=== PATIENT | male | born 2000 | race Caucasian/White ===

== ENCOUNTER 2024-05-18 10:50 | Inpatient (IN) | payer OTHER, SELFPAY ==
[2024-05-18 10:54] VITALS: BP 135/81; PULSE 82; RESP 18; TEMP 36.7; O2SAT 100; BMI 20.3
[2024-05-18 11:04] VITALS: BP 135/81; PULSE 82; RESP 18; TEMP 36.7; O2SAT 100
--- NOTE | 2024-05-18 11:06 | ED.C_ITS ---
HPI - Psych 2 General: Chief Complaint: Psychiatric Symptoms Stated Complaint: MHE, SI Time Seen by Provider: 05/18/24 10:59 Source: patient Mode of arrival: ambulatory Limitations: no limitations History of Present Illness: 24-year-old male states that he has been having increasing depression along with hallucinations over the last few months. States his grandmother recently and he has been using THC states he is hearing voices and he is increasingly depressed with suicidal thoughts denies any specific plan denies any worse improving factors does not take any meds Associated symptoms: Reports auditory hallucinations, depression and suicidal ideation Related Data Home Medications Medication Instructions Recorded Confirmed No Known Home Medications 05/18/24 05/18/24 Allergies Allergy/AdvReac Type Severity Reaction Status Date / Time No Known Allergies Allergy Verified 10/07/22 09:23 Review of Systems 2 Const: Denies: fever(s), chills, body aches or change in appetite ENMT: Denies: throat pain or dental pain Card: Denies: chest pain Resp: Denies: dyspnea GI: Denies: abdominal pain, nausea, vomiting or diarrhea Musc: Denies: neck pain or back pain Skin/Breast: Denies: rash Neuro: Denies: headache(s) Psych: Reports: depression, auditory hallucinations and suicidal ideation PFSH ED 2 PFSH: Family History (Updated 10/07/22 @ 09:26 by Vera Crane LPN) Denies family history of Diabetes Hypertension Social History (Updated 10/07/22 @ 09:27 by Vera Crane LPN) Smoking and tobacco/nicotine status: never used tobacco/nicotine Second hand smoke exposure: No Substance/Drug Use: never Physical Exam 2 Const: COMMON NORMALS: no acute distress, patient oriented x3 and healthy appearing HENMT: COMMON NORMALS: normocephalic and atraumatic HEAD & SCALP: n ormocephalic and atraumatic Neck/C-Spine: COMMON NORMALS: full ROM and supple Chest: COMMONS NORMALS: normal inspection of the chest Resp: COMMON NORMALS: normal respiratory effort, No retractions, No use of accessory muscles and clear to auscultation bilaterally AUSCULTATION: clear to auscultation bilaterally Cardio: COMMON NORMALS: regular rate, regular rhythm and No murmurs present (Cardio) RATE: regular rate RHYTHM: regular rhythm Extremity: COMMON NORMALS: normal to inspection and full ROM Neuro: COMMON NORMALS: patient oriented x3, moves all extremities and no focal motor deficits Psych: COMMON NORMALS: mental status grossly normal, Normal thought process present and cooperative THOUGHT PROCESS: Normal thought process present Skin: COMMON NORMALS: no rashes or lesions noted and no wounds GENERAL SKIN EXAM: no rashes or lesions noted Course 2 Vital Signs: Vital signs: Vital Signs Temperature 98.1 F 05/18/24 11:04 Pulse Rate 94 05/18/24 14:56 Respiratory Rate 18 05/18/24 11:04 Blood Pressure 143/94 05/18/24 14:56 Pulse Oximetry 100 05/18/24 14:56 Oxygen Delivery Me thod Room Air 05/18/24 14:56 MDM - Psych Medical Decision Making Patient presents here with suicidal ideations along with hallucinations patient placed under 96-hour hold medically cleared I spoke to psychiatrist will admit Medical Records I reviewed the patient's medical records. Lab Data I reviewed the patient's lab results. 05/18/24 12:03 05/18/24 12:03 Laboratory Results WBC 5.33 10^3/uL (3.29-11.43) 05/18/24 12:03 RBC 4.70 10^6/uL (3.85-5.65) 05/18/24 12:03 Hgb 15.00 g/dL (11.27-16.99) 05/18/24 12:03 Hct 45.0 % (37-53) 05/18/24 12:03 MCV 95.7 fl (82-101) 05/18/24 12:03 MCH 31.9 pg (27-33) 05/18/24 12:03 MCHC 33.3 g/dL (30-55) 05/18/24 12:03 RDW 12.4 % (12.1-15.1) 05/18/24 12:03 Plt Count 159 10^3/cmm (157-399) 05/18/24 12:03 MPV 10.5 fL (7.4-10.4) H 05/18/24 12:03 Neut % (Auto) 64.0 % 05/18/24 12:03 Lymph % (Auto) 27.0 % 05/18/24 12:03 Love % (Auto) 8.4 % 05/18/24 12:03 Eos % (Auto) 0.2 % 05/18/24 12:03 Baso % (Auto) 0.4 % 05/18/24 12:03 Neut # (Auto) 3.41 10^3/uL (1.8-7.7) 05/18/24 12:03 Lymph # (Auto) 1.4 10^3/uL (0.8-4.8) 05/18/24 12:03 Love # (Auto) 0.5 10^3/uL (0.2-0.9) 05/18/24 12:03 Eos # (Auto) 0.0 10^3/uL (0.0-0.8) 05/18/24 12:03 Baso # (Auto) 0.0 10^3/uL (0.0-0.1) 05/18/24 12:03 Nucleated RBC % (auto) 0 % 05/18/24 12:03 Nucleated RBCs # 0.0 /100WBC 05/18/24 12:03 Sodium 142 mmol/L (136-145) 05/18/24 12:03 Potassium 4.1 mmol/L (3.5-5.1) 05/18/24 12:03 Chloride 104 mmol/L (98-107) 05/18/24 12:03 Carbon Dioxide 29 mmol/L (22-29) 05/18/24 12:03 Anion Gap 13.1 (5-19) 05/18/24 12:03 BUN 14 mg/dL (6-20) 05/18/24 12:03 Creatinine 1.0 mg/dL (0.7-1.2) 05/18/24 12:03 GFR Calculation 92.6 mL/min (90-130) 05/18/24 12:03 Glucose 112 mg/dL (65-115) 05/18/24 12:03 Calculated Osmolality 295 mOsm/kg (285-295) 05/18/24 12:03 Calcium 9.2 mg/dL (8.5-10.5) 05/18/24 12:03 Total Bilirubin 0.5 mg/dL (0.15-1.2) 05/18/24 12:03 AST 20 U/L (0-40) 05/18/24 12:03 ALT 9 U/L (0-41) 05/18/24 12:03 Alkaline Phosphatase 66 U/L (40-130) 05/18/24 12:03 Total Protein 7.0 g/dL (6.6-8.7) 05/18/24 12:03 Albumin 4.9 g/dL (3.5-5.2) 05/18/24 12:03 Globulin 2.1 g/dL (1.3-4.6) 05/18/24 12:03 Salicylates < 0.3 mg/dL (3-10) L 05/18/24 12:03 Urine Opiates Screen Negative ng/mL (Negative) 05/18/24 12:50 Acetaminophen < 5.0 ug/mL (10-30) L 05/18/24 12:03 Ur Barbiturates Screen Negative ng/mL (Negative) 05/18/24 12:50 Ur Phencyclidine Scrn Negative ng/mL (Negative) 05/18/24 12:50 Ur Amphetamines Screen Negative ng/mL (Negative) 05/18/24 12:50 U Benzodiazepines Scrn Negative ng/mL (Negative) 05/18/24 12:50 Urine Cocaine Screen Negative ng/mL (Negative) 05/18/24 12:50 U Marijuana (THC) Screen Positive ng/mL (Negative) H 05/18/24 12:50 Ethyl Alcohol < 10 mg/dL (0-10) 05/18/24 12:03 Coronavirus (PCR) Negative (Negative) 05/18/24 11:24 Influenza A (PCR) Negative (Negative) 05/18/24 11:24 Influenza Type B (PCR) Negative (Negative) 05/18/24 11:24 RSV (PCR) Negative (Negative) 05/18/24 11:24 No radiology studies performed this visit Discharge Plan Discharge Condition: Stable Prescriptions: No Action No Known Home Medications Coding Level of Care Code ED Cur[employer] Specialist for Patricio Dukes
--- NOTE | 2024-05-18 11:45 | PC.NURSE ---
96 hour hold rights read and reviewed with patient. Patient verbalized understandings. Copy of rights given to patient.
[2024-05-18 12:09] LABS: Covid PCR NEGATIVE (Negative); Influenza A NEGATIVE (Negative); Influenza B NEGATIVE (Negative); Respiratory Syncytial Virus Ce NEGATIVE (Negative)
[2024-05-18 12:11] LABS: Basophils % 0.4 %; Eosinophils % 0.2 %; Lymphocytes # 1.4 10^3/uL (0.8-4.8); Mean Corpuscular HGB Conc 33.3 g/dL (30-55); Mean Corpuscular Hemoglobin 31.9 pg (27-33); Mean Corpuscular Volume 95.7 fl (82-101); Mean Platelet Volume 10.5 fL (7.4-10.4); Monocytes # 0.5 10^3/uL (0.2-0.9); Monocytes % 8.4 %; Neutrophils # 3.41 10^3/uL (1.8-7.7); Nucleated Red Blood Cells % 0 %; Platelet Count 159 10^3/cmm (157-399); Red Cell Distribution Width 12.4 % (12.1-15.1); White Blood Count 5.33 10^3/uL (3.29-11.43)
[2024-05-18 12:28] LABS: Alanine Aminotransferase 9 U/L (0-41); Albumin Level 4.9 g/dL (3.5-5.2); Alkaline Phosphatase 66 U/L (40-130); Anion Gap 13.1 (5-19); Aspartate Amino Transferase 20 U/L (0-40); Blood Urea Nitrogen 14 mg/dL (6-20); Calcium 9.2 mg/dL (8.5-10.5); Carbon Dioxide 29 mmol/L (22-29); Chloride 104 mmol/L (98-107); Creatinine Clr Calc Pharmacy 119.8854; Globulin 2.1 g/dL (1.3-4.6); Glomerular Filtration Rate 92.6 mL/min (90-130); Glucose 112 mg/dL (65-115); Osmolality Calculated 295 mOsm/kg (285-295); Potassium 4.1 mmol/L (3.5-5.1); Sodium 142 mmol/L (136-145); Total Bilirubin 0.5 mg/dL (0.15-1.2)
[2024-05-18 12:32] LABS: Acetaminophen < 5.0 ug/mL (10-30); Alcohol Level < 10 mg/dL (0-10); Salicylate < 0.3 mg/dL (3-10)
[2024-05-18 13:24] LABS: Amphetamines Screen Urine Negative (Negative); Barbiturates Screen Urine Negative (Negative); Benzodiazepines Screen Urine Negative (Negative); Cocaine Screen Urine Negative (Negative); Opiate Screen Urine Negative (Negative); PCP Screen Urine Negative (Negative); THC Screen Urine Positive (Negative)
[2024-05-18] MEDS: LORazepam 2 mg Tablet PO (14:55)
[2024-05-18 14:56] VITALS: BP 143/94; PULSE 94; O2SAT 100
[2024-05-18 18:35] VITALS: BP 119/70; PULSE 68; TEMP 36.7; O2SAT 98
[2024-05-18 20:50] VITALS: BP 126/83; PULSE 80; RESP 18; TEMP 36.8; O2SAT 99
[2024-05-19 06:00] VITALS: BP 125/69; PULSE 90; RESP 18; TEMP 37.2; O2SAT 98
[2024-05-19] MEDS: hyDROXYzine 25 mg Capsule 50 MG PO (07:09)
[2024-05-19] MEDS: OLANZapine 5 mg ODT PO (08:14)
--- NOTE | 2024-05-19 10:09 | PC.NURSE ---
pt at nurses station requesting another medication for anxiety. pt states I am starting to get agravated with people. administered zyprexia to patient. pt walked away towards dayroom sat down started watching tv.
[2024-05-19 14:00] VITALS: BP 125/82; PULSE 71; RESP 18; TEMP 36.6; O2SAT 100
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
[2024-05-19] MEDS: fluoxetine 20 mg Capsule PO (18:12)
[2024-05-19 19:29] VITALS: BP 115/70; PULSE 61; RESP 18; TEMP 36.9; O2SAT 99
[2024-05-19 21:54] VITALS: BP 115/70; PULSE 61; RESP 18; TEMP 36.9; O2SAT 99
[2024-05-20] MEDS: hyDROXYzine 25 mg Capsule 50 MG PO ×2 (03:32→13:11)
[2024-05-20 06:00] VITALS: BP 114/71; PULSE 75; RESP 16; TEMP 36.9; O2SAT 100
[2024-05-20] MEDS: fluoxetine 20 mg Capsule PO (08:53)
--- NOTE | 2024-05-20 09:45 | PC.NURSE ---
PT CURRENTLY DENIES SI/HI/AH/VH. PT CURRENTLY DENIES ANXIETY. PT ENDORSES DEPRESSION RATING IT A 6/10 ON A 0-10 SCALE WHERE 0 IS NONE AND 10 IS THE WORST POSSIBLE. PT APPEARS FLAT AND BLAND IN AFFECT WHILE APPEARING GUARDED DURING MORNING ASSESSMENT QUESTIONS. PT WAS COOPERATIVE WITH ASSESSMENT AND MEDICATIONS. PT CURRENT NEEDS ARE MET AT THIS TIME.
--- NOTE | 2024-05-20 11:15 | P.NPUPN_ITS ---
Subjective NPU 2 Subjective: Patient presented today reporting that things are going okay for him. We discussed speaking with his mother her reporting significant concern about how he is doing. He endorses tolerating the Prozac thus far and we discussed the fact that he would see how he was doing tomorrow and consider adding a mood stabilizer like Abilify. He denied any side effects to the medication. Mental Status Exam 2 MSE Comments: This is a slender possibly underweight but well-developed male in hospital scrubs with limited grooming and eye contact. No abnormal movements except for mild psychomotor retardation. Cooperative with exam in mild distress. Speech was decreased rate and volume. Patient mood described as depressed, affect slightly subdued. Thought process, organized. Thought content: patient denies any suicidal or homicidal ideation, no delusions reported but paranoid and/or persecutory delusions noted, and denies any auditory or visual hallucinations but does acknowledge that there were some perceptual disturbances that led to him coming to the hospital. The patient reports feeling depressed. He denies current suicidal or homicidal ideation. He denies feeling paranoid at the moment but reports possibly hearing things. Attention and concentration are intact and memory appears mostly reliable but none were formally tested. He is alert and oriented x 3. Insight and judgment are limited. Impulse control appears limited. Vitals/I&O/Wt Last Vital Signs Temp 98.4 F 05/20/24 06:00 Pulse 75 05/20/24 06:00 Resp 16 05/20/24 06:00 BP 114/71 05/20/24 06:00 Pulse Ox 100 05/20/24 06:00 O2 Del Method Room Air 05/20/24 06:00 Data NPU 05/18/24 12:03 05/18/24 12:03 A&P Assessment and plan (1) Suicidal ideation: (2) Acute psychosis: (3) Depression: (4) Anxiety: (5) Cannabis use disorder: Plan This is a 24-year-old male with no apparent recollection of his past mental health treatment but with documentation in the records from past interactions at [facility] with active mental health issues including depression, anxiety, trauma history as well as active cannabis use. The patient presents with symptoms of major depressive disorder, generalized anxiety disorder, paranoid ideation, and possible psychotic features. He has a history of substance use disorder and has experienced significant psychological trauma in his life. He has a complex mental health history and may benefit from medication management and therapy. 1. Start Prozac 20 mg p.o. daily. Consider mood stabilizer/antipsychotic. 2. Continue to-15 minute checks, 3.? Encourage individual, group and milieu therapy. 4.? Will attempt to gather collateral information. 5. Encourage sober living treatment after discharge at the highest level care to which he is willing to commit. Involuntary Hold Information 2 96 Hour Hold: 96 Hour Involuntary Admission: Yes 96 Hour Hold Ending Date: 05/24/24 96 Hour Hold Ending Time: 11:14 Attestations NPU 2 Medical Necessity Statement*: Inpatient hospitalization is medically necessary and the clinically appropriate intervention ?at this time.? We will monitor/initiate medications and make changes as indicated.? The patient?s likely length of stay 4-6 days. Coding Level of Care Code Acute Code for Chg Fwd Diagnoses Suicidal ideation R45.851 Acute psychosis F23 Depression F32.A Anxiety F41.9 Cannabis use disorder F12.90
[2024-05-20] MEDS: nicotine 2 mg Gum BUCCAL (13:15)
[2024-05-20 13:57] VITALS: BP 115/69; PULSE 77; RESP 16; TEMP 37; O2SAT 99
[2024-05-20] MEDS: trazodone 50 mg Tablet PO (20:41)
[2024-05-20 20:47] VITALS: BP 127/76; PULSE 75; RESP 17; TEMP 37.1; O2SAT 99
[2024-05-21] MEDS: hyDROXYzine 25 mg Capsule 50 MG PO ×2 (05:05→13:07)
[2024-05-21 05:52] VITALS: BP 127/87; PULSE 95; RESP 18; TEMP 36.8; O2SAT 99
[2024-05-21] MEDS: nicotine 2 mg Gum BUCCAL ×2 (09:07→15:52)
[2024-05-21] MEDS: fluoxetine 20 mg Capsule PO (09:07)
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
--- NOTE | 2024-05-21 11:53 | P.NPUPN_ITS ---
Subjective NPU 2 Subjective: Patient presented today reporting that he is feeling a little better with multiple days of Prozac now. We continue to discuss the psychotic symptoms and the possible benefit from having a mood stabilizer to augment the Prozac. Additionally it could assist in managing any psychotic symptoms. We continue to discuss concerns that Wanna could be playing a role in this from the standpoint of the psychosis. But he continues to be resistant to that piece but open to a trial of Abilify after discussion of risks, benefits and alternatives he understood and agreed to proceed as is documented in this note. Mental Status Exam 2 MSE Comments: This is a slender possibly underweight but well-developed male in hospital scrubs with limited grooming and eye contact. No abnormal movements except for mild psychomotor retardation. Cooperative with exam in mild distress. Speech was decreased rate and volume. Patient mood described as a little better, affect slightly subdued. Thought process, organized. Thought content: patient denies any suicidal or homicidal ideation, no delusions reported but paranoid and/or persecutory delusions noted, and denies any auditory or visual hallucinations but does acknowledge that there were some perceptual disturbances that led to him coming to the hospital. The patient reports feeling depressed. He denies current suicidal or homicidal ideation. He denies feeling paranoid at the moment but reports possibly hearing things. Attention and concentration are intact and memory appears mostly reliable but none were formally tested. He is alert and oriented x 3. Insight and judgment are limited. Impulse control appears limited. Vitals/I&O/Wt Last Vital Signs Temp 98.1 F 05/21/24 21:45 Pulse 70 05/21/24 21:45 Resp 17 05/21/24 21:45 BP 134/75 05/21/24 21:45 Pulse Ox 98 05/21/24 21:45 O2 Del Method Room Air 05/21/24 14:00 Data NPU 05/18/24 12:03 05/18/24 12:03 A&P Assessment and plan (1) Suicidal ideation: (2) Acute psychosis: (3) Depression: (4) Anxiety: (5) Cannabis use disorder: Plan This is a 24-year-old male with no apparent recollection of his past mental health treatment but with documentation in the records from past interactions at [facility] with active mental health issues including depression, anxiety, trauma history as well as active cannabis use. The patient presents with symptoms of major depressive disorder, generalized anxiety disorder, paranoid ideation, and possible psychotic features. He has a history of substance use disorder and has experienced significant psychological trauma in his life. He has a complex mental health history and may benefit from medication management and therapy. 1. Started Prozac 20 mg p.o. daily. Initiate Abilify 5 mg p.o. daily for mood stabilization and psychotic symptoms. 2. Continue to-15 minute checks, 3.? Encourage individual, group and milieu therapy. 4.? Will attempt to gather collateral information. 5. Encourage sober living treatment after discharge at the highest level care to which he is willing to commit. Involuntary Hold Information 2 96 Hour Hold: 96 Hour Involuntary Admission: Yes 96 Hour Hold Ending Date: 05/24/24 96 Hour Hold Ending Time: 11:14 Attestations NPU 2 Medical Necessity Statement*: Inpatient hospitalization is medically necessary and the clinically appropriate intervention ?at this time.? We will monitor/initiate medications and make changes as indicated.? The patient?s likely length of stay 3-5 days. Coding Level of Care Code Acute Code for g Fwd Diagnoses Suicidal ideation R45.851 Acute psychosis F23 Depression F32.A Anxiety F41.9 Cannabis use disorder F12.90
[2024-05-21] MEDS: ARIPiprazole 10 mg Tablet PO (12:16)
[2024-05-21 14:00] VITALS: BP 141/91; PULSE 80; RESP 16; TEMP 37.4; O2SAT 98
[2024-05-21] MEDS: trazodone 50 mg Tablet PO (20:39)
[2024-05-21 21:45] VITALS: BP 134/75; PULSE 70; RESP 17; TEMP 36.7; O2SAT 98
[2024-05-22 06:00] VITALS: BP 127/89; PULSE 99; RESP 18; TEMP 37.1; O2SAT 98
[2024-05-22] MEDS: ARIPiprazole 10 mg Tablet PO (08:59)
[2024-05-22] MEDS: fluoxetine 20 mg Capsule PO (08:59)
[2024-05-22] MEDS: nicotine 2 mg Gum BUCCAL (13:54)
[2024-05-22 14:00] VITALS: BP 144/87; PULSE 86; RESP 16; TEMP 37.3; O2SAT 96
--- NOTE | 2024-05-22 14:47 | W.PM.NPUPNS ---
Subjective NPU Subjective: 24-year-old male admitted with suicidal ideation with reports of increased paranoia currently on Abilify and Prozac. Patient had reported that he had been feeling better. He had suggested that he had had periods of time in the past where he had not required sleep for at least 2 days. He had reported that the Abilify had been helpful at slowing down his thoughts and agreed that he had had previous episodes of rapid and racing thoughts that he described as being a flood of different thoughts. He reported that he had previously struggled as a child with reality testing and stated that he had been implied to have been in the autistic spectrum when he was younger. He had reported having struggles with feeling as if he were being watched and reported anxiety with being in social situations but also reported that he had a family history of bipolar disorder and that he had periods of increased paranoia and some perceptual disturbances. Mental Status Exam MSE Comments: This is a slender possibly underweight but well-developed male in hospital scrubs with limited grooming and eye contact. No abnormal movements except for mild psychomotor retardation. He was cooperative with exam in mild distress. Speech was decreased in rate and volume. Patient mood described as ok. Affect was subdued. Thought process was linear and organized. Thought content: patient denies any suicidal or homicidal ideation, No clear delusions reported but paranoia appreciated, and denies any auditory or visual hallucinations but does acknowledge that there were some perceptual disturbances that led to him coming to the hospital. The patient denies current suicidal or homicidal ideation. Attention and concentration are intact and memory appears mostly reliable but none were formally tested. He is alert and oriented x 3. Insight and judgment are limited. Impulse control appears limited. Vitals/I&O/Wt Last Vital Signs Temp 99.1 F 05/22/24 14:00 Pulse 86 05/22/24 14:00 Resp 16 05/22/24 14:00 BP 144/87 05/22/24 14:00 Pulse Ox 96 05/22/24 14:00 O2 Del Method Room Air 05/22/24 14:00 05/21/24 05/22/24 05/22/24 22:59 06:59 14:59 Intake Total 480 / 480 Balance 480 / 480 Weight last 48 hrs Weight 68.039 kg Data NPU 05/18/24 12:03 05/18/24 12:03 A&P Assessment and plan (1) Suicidal ideation: (2) Acute psychosis: (3) Depression: (4) Anxiety: (5) Cannabis use disorder: Plan This is a 24-year-old male with no apparent recollection of his past mental health treatment but with documentation in the records from past interactions at [facility] with active mental health issues including depression, anxiety, trauma history as well as active cannabis use. The patient presents with symptoms of major depressive disorder, generalized anxiety disorder, paranoid ideation, and possible psychotic features. He has a history of substance use disorder and has experienced significant psychological trauma in his life. He has a complex mental health history and may benefit from medication management and therapy. 1. Continue Prozac 20 mg p.o. daily. Continue abilify 10mg daily. 2. Continue to-15 minute checks, 3.? Encourage individual, group and milieu therapy. 4.? Will attempt to gather collateral information. 5. Encourage sober living treatment after discharge at the highest level care to which he is willing to commit. Involuntary Hold Information 96 Hour Hold: 96 Hour Involuntary Admission: Yes 96 Hour Hold Ending Date: 05/24/24 96 Hour Hold Ending Time: 11:14 Attestations NPU Medical Necessity Statement*: Inpatient hospitalization is medically necessary and the clinically appropriate intervention ?at this time.? We will monitor/initiate medications and make changes as indicated.? The patient?s likely length of stay 3-5 days. Coding Level of Care Code Acute Code for [facility] Fwd Diagnoses Suicidal ideation R45.851 Acute psychosis F23 Depression F32.A Anxiety F41.9 Cannabis use disorder F12.90
[2024-05-22] MEDS: hyDROXYzine 25 mg Capsule 50 MG PO (15:39)
[2024-05-22] MEDS: trazodone 50 mg Tablet PO (20:05)
[2024-05-22 20:07] VITALS: BP 126/75; PULSE 71; RESP 17; TEMP 36.8; O2SAT 98
[2024-05-23 06:00] VITALS: BP 122/75; PULSE 74; RESP 17; TEMP 36.7; O2SAT 98
[2024-05-23] MEDS: fluoxetine 20 mg Capsule PO (09:00)
[2024-05-23] MEDS: ARIPiprazole 10 mg Tablet PO (09:00)
[2024-05-23] MEDS: nicotine 2 mg Gum BUCCAL (11:29)
[2024-05-23] MEDS: hyDROXYzine 25 mg Capsule 50 MG PO ×2 (11:29→23:03)
[2024-05-23 13:50] VITALS: BP 124/74; PULSE 83; RESP 16; TEMP 36.8; O2SAT 97
--- NOTE | 2024-05-23 15:09 | P.NPUPN_ITS ---
Subjective NPU 2 Subjective: 24-year-old male admitted with suicidal ideation with reports of increased paranoia currently on Abilify and Prozac. Patient reported improved mood today. He reported that his thoughts were not racing. He had been isolative on the milieu. He had reported some improved sleep. 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 He denied any auditory hallucinations today. He had minimized any thoughts of hurting himself. Mental Status Exam 2 MSE Comments: This is a slender possibly underweight but well-developed male in hospital scrubs with limited grooming and eye contact. No abnormal movements except for mild psychomotor retardation. He was cooperative with exam in mild distress. Speech was decreased in rate and normal in volume. Patient mood described as better. Affect was restricted. Thought process was linear and organized. Thought content: patient denies any suicidal or homicidal ideation. No clear delusional thinking was appreciated with less paranoia. He denies any auditory or visual hallucinations and did not appear to be responding to internal stimuli. The patient denies current suicidal or homicidal ideation. Attention and concentration are intact and memory appears mostly reliable but none were formally tested. He is alert and oriented x 3. Insight and judgment are limited. Impulse control appears limited. Vitals/I&O/Wt Last Vital Signs Temp 98.3 F 05/23/24 13:50 Pulse 83 05/23/24 13:50 Resp 16 05/23/24 13:50 BP 124/74 05/23/24 13:50 Pulse Ox 97 05/23/24 13:50 O2 Del Method Room Air 05/22/24 14:00 Weight last 48 hrs Weight 68.039 kg Data NPU 05/18/24 12:03 05/18/24 12:03 A&P Assessment and plan (1) Suicidal ideation: (2) Acute psychosis: (3) Depression: (4) Anxiety: (5) Cannabis use disorder: Plan This is a 24-year-old male with no apparent recollection of his past mental health treatment but with documentation in the records from past interactions at [facility], [place] with active mental health issues including depression, anxiety, trauma history as well as active cannabis use. The patient presents with symptoms of major depressive disorder, generalized anxiety disorder, paranoid ideation, and possible psychotic features. He has a history of substance use disorder and has experienced significant psychological trauma in his life. He has a complex mental health history and may benefit from medication management and therapy. 1. Continue Prozac 20 mg p.o. daily. Continue abilify 10mg daily. 2. Continue to-15 minute checks, 3.? Encourage individual, group and milieu therapy. 4.? Will attempt to gather collateral information. 5. Encourage sober living treatment after discharge at the highest level care to which he is willing to commit. Involuntary Hold Information 2 96 Hour Hold: 96 Hour Involuntary Admission: Yes 96 Hour Hold Ending Date: 05/24/24 96 Hour Hold Ending Time: 11:14 Attestations NPU 2 Medical Necessity Statement*: Inpatient hospitalization is medically necessary and the clinically appropriate intervention ?at this time.? We will monitor/initiate medications and make changes as indicated.? The patient?s likely length of stay 1-2 days. Coding Level of Care Code Acute Code for [facility] Fwd Diagnoses Suicidal ideation R45.851 Acute psychosis F23 Depression F32.A Anxiety F41.9 Cannabis use disorder F12.90
[2024-05-23 19:52] VITALS: BP 120/75; PULSE 77; RESP 18; TEMP 36.9; O2SAT 98
[2024-05-23] MEDS: trazodone 50 mg Tablet PO (19:57)
[2024-05-24 06:00] VITALS: BP 135/90; PULSE 89; RESP 16; TEMP 36.7; O2SAT 99
[2024-05-24] MEDS: ARIPiprazole 10 mg Tablet PO (08:05)
[2024-05-24] MEDS: fluoxetine 20 mg Capsule PO (08:05)
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
[2024-05-24 13:02] VITALS: BP 141/96; PULSE 93; RESP 17; TEMP 36.7; O2SAT 100
[2024-05-24 13:06] VITALS: BP 141/96; PULSE 93; RESP 16; TEMP 36.7; O2SAT 100
== END 2024-05-24 13:14 | disposition home or self-care (01) | DRG 881 ==
LOC: ER 16:26 → NP 18:19
PROVIDERS: Admitting Provider Psychiatry & Neurology Psychiatry; Emergency Provider Emergency Medicine; Family Provider Registered Nurse; PCP Registered Nurse; Visit Provider Psychiatry & Neurology Psychiatry
DX: F32.9 Major depressive disorder, single episode, unspecified (principal); F23 Brief psychotic disorder; R45.851 Suicidal ideations; F41.1 Generalized anxiety disorder; R63.6 Underweight; Z68.20 Body mass index [BMI] 20.0-20.9, adult; Z81.8 Family history of other mental and behavioral disorders
CPT/HCPCS: 0241U; 36415; 80053; 80306; 80307; 85025; 97150; 97165; 99285

== ENCOUNTER → 2024-08-01 08:48 | Outpatient (BNVA) | payer OTHER, SELFPAY | PROVIDERS: Family Provider Registered Nurse; PCP Registered Nurse; Visit Provider Nurse Practitioner Psychiatric/Mental Health | DX: F33.1 Major depressive disorder, recurrent, moderate (principal); F12.20 Cannabis dependence, uncomplicated | CPT/HCPCS: 80061; 83036 ==

== ENCOUNTER → 2024-11-23 09:22 | Outpatient (BNVA) | payer OTHER, SELFPAY ==
[2024-08-03 11:28] VITALS: BP 126/71; BMI 23.7
== END ==
PROVIDERS: Family Provider Registered Nurse; PCP Registered Nurse; Visit Provider Nurse Practitioner Psychiatric/Mental Health
DX: Z79.899 Other long term (current) drug therapy (principal)
CPT/HCPCS: 80307

== ENCOUNTER 2025-01-16 12:21 | Inpatient (IN) | payer OTHER, BC, MEDICAID, SELFPAY ==
[2024-08-03 11:28] VITALS: BP 126/71; BMI 23.7
[2025-01-16 12:23] VITALS: BP 131/88; PULSE 93; RESP 16; TEMP 36.8; O2SAT 98; BMI 21.2
--- OUTSIDE RECORDS SUMMARY | 2025-01-16 12:28 | XMS_ITS | Clinical Summary ---
Author Organization [facility] Address [address] [place] [address] Phone Care Team Providers Care Aviation Engineer Name Role Phone Tate Pavon, LUCILLE, Cody Treviño Primary Care Pro vider Allergies No known active allergies Medications amoxicillin-clav ulanate (AUGMENTIN) 500-125 mg tablet Take 1 Tablet by mouth every 12 hours. 10 Tablet 03/18/2018 Active Social History Tobacco Use Types Packs/Day Years Used Date Smoking Tobacco: Former Smokeless Tobacco: Never Alcohol Use Standard Drinks/Week Comments No 0 (1 standard drink = 0.6 oz pur e alcohol) Sex and Gender Information Value Date Recorded Sex Assigned at Not on file Legal Sex Male 7:05 PM CDT Gender Identity Not on file Sexual Orientation Not on file Last Filed Vital Signs Vital Sign Reading Time Taken Comments Blood Pressure 119/75 03/03/2020 3:23 PM CDT Pulse - - Temperature 36.8 C (98.3 F) 03/03/2020 3:23 PM CDT Respiratory Rate 18 03/03/2020 3:23 PM CDT Oxygen Saturation 96% 03/03/2020 3:23 PM CDT Inhaled Oxygen Concentration - - Weight 72.1 kg (159 lb) 03/03/2020 2:53 PM CDT Height 182.9 cm (6') 03/03/2020 2:53 PM CDT Body Mass Index 21.56 03/03/2020 2:53 PM CDT Plan of Treatment Health Maintenance Due Date Last Done Comments HPV VACCINES (1 - Male 3-dose series) 01/13/2016 DTAP/TDAP/TD VACCINES (1 - Tdap) 01/13/2020 HEPATITIS B VACCINES (1 of 3 - 19+ 3-dose series) 01/03 INFLUENZA VACCINE (#1) 2025 Insurance GENERIC MEDICAID MANAGED CARE Member Subscriber Plan / Payer (Ef fective 2016-Present) Name:Eben Chavez Relation to Subscriber:Self Name:Eben Chavez Payer ID:Not on file Group ID:Not on file Type:Medicaid Managed Care Address: [address] GENERIC MEDICAID [employer]NAGED CARE Care Teams Aviation Engineer Relationship Specialty Start Date End Date Tate Pavon, LUCILLE Wallace [address] [place] [address] PCP - General NURSE PRACTITIONER 11/09/16
--- OUTSIDE RECORDS SUMMARY | 2025-01-16 12:28 | XMS_ITS | Clinical Summary ---
Author Organization [email or web address] Address [address] [place]: Epic Prelude ADT CHARLIE BELTRAN [address] Care Team Providers Care Lumber Checker Name Role Phone Brenda Champagne MD Primary Care Provider [phone] Allergies No known active allergies Medications No known medications Active Problems No known active problems Immunizations Immunization Administration Dates Next Due (ADACEL/BOOSTRIX)(10 YR UP) TDAP VACCINE, 0.5ML, IM 08/14/2021 Social History Tobacco Use Types Packs/Day Years Used Date Smoking Tobacco: Every Day Cigarettes Smokeless Tobacco: Never Tobacco Cessation:Ready to Q uit: Not Asked; Counseling Given: Not Answered Alcohol Use Standard Drinks/Week Comments Not Currently 0 (1 standard drink = 0.6 oz pur e alcohol) Feeling Safe Answer Date Recorded Are you in a relationship wi th someone who hurts you emotionally and/or physically? 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 Gender Identity Not on file Sexual Orientation Not on file Last Filed Vital Signs Vital Sign Reading Time Taken Comments Blood Pressure 124/89 11/23/2022 9:20 AM CDT Pulse 88 10/02/2021 2:08 PM CDT Temperature 36.5 C (97.7 F) 11/23/2022 9:20 AM CDT Respiratory Rate 14 11/23/2022 9:20 AM CDT Oxygen Saturation 97% 11/23/2022 9:20 AM CDT Inhaled Oxygen Concentration - - Weight 68 kg (150 lb) 11/23/2022 8:33 AM CDT Height 180.3 cm (5' 11 ) 11/23/2022 8:33 AM CDT Body Mass Index 20.92 11/23/2022 8:33 AM CDT Plan of Treatment Health Maintenance Due Date Last Done Comments HPV VACCINES (1 - Male 3-dose series) 01/13/2016 HEPATITIS B VACCINES (1 of 3 - 19+ 3-dose series) 01/03 INFLUENZA VACCINE (#1) 2025 DTAP/TDAP/TD VACCINES (2 - Td or Tdap) 08/14/2031 Insurance [facility] [employer] Care Teams Lumber Checker Relationship Specialty Start Date End Date Brenda Champagne MD [address] [address] PCP - General Family Practice 11/23/22
--- NOTE | 2025-01-16 12:36 | W.ED.PSYCHS ---
HPI - Psych General: Chief Complaint: Psychiatric Symptoms Stated Complaint: mhe Time Seen by Provider: 01/16/25 12:25 History of Present Illness: 25-year-old male presents emergency room with [place] [employer] patient has a history of regular marijuana use. His family had written several affidavits he been expressing suicidal and homicidal ideation. He attempted to walk out into traffic. Patient is evasive as to how and why he got here and he declines to admit he was suicidal at home denies any of the actions that his family members had written affidavits 2. He states he is unsure why he is here. He denies any other substance abuse beyond marijuana. 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 Cigar smoker Marijuana dependence Major depressive disorder, recurrent, moderate Psychiatric care Family History Denies family history of Diabetes Hypertension Social History Smoking and tobacco/nicotine status: never used tobacco/nicotine Second hand smoke exposure: No Substance/Drug Use: never Physical Exam Const: COMMON NORMALS: no acute distress GENERAL APPEARANCE: cooperative and comfortable ORIENTATION/CONSCIOUSNESS: Yes awake, Yes oriented to person, Yes oriented to place and Yes oriented to time HENMT: COMMON NORMALS: normocephalic, atraumatic and hearing grossly normal bilaterally HEAD & SCALP: normocephalic and atraumatic Resp: COMMON NORMALS: normal respiratory effort, No retractions, No use of accessory muscles and clear to auscultation bilaterally AUSCULTATION: clear to auscultation bilaterally Cardio: COMMON NORMALS: regular rate, regular rhythm and No murmurs present (Cardio) RATE: regular rate RHYTHM: regular rhythm Extremity: COMMON NORMALS: normal to inspection, capillary refill normal, no clubbing, cyanosis or edema, no calf tenderness and no pedal edema Neuro: SENSORIUM/ORIENTATION: Yes oriented to person, Yes oriented to place and Yes oriented to time Skin: COMMON NORMALS: no rashes or lesions noted GENERAL SKIN EXAM: no rashes or lesions noted Course Vital Signs: Vital signs: Vital Signs Temperature 98.2 F 01/16/25 12:23 Pulse Rate 93 01/16/25 12:23 Respiratory Rate 16 01/16/25 12:23 Blood Pressure 131/88 01/16/25 12:23 Pulse Oximetry 98 01/16/25 12:23 Oxygen Delivery Me thod Room Air 01/16/25 12:23 MDM - Psych Medical Decision Making Affidavits are concerning discussed Dr. Lopez will admit orders written and advised patient we will keep him here in the 96-hour hold to evaluate. He is not opposed to this. Medical Records I reviewed the patient's medical records. Lab Data I reviewed the patient's lab results. 01/16/25 13:00 01/16/25 13:00 Laboratory Results WBC 7.37 10^3/uL (3.29-11.43) 01/16/25 13:00 RBC 4.69 10^6/uL (3.85-5.65) 01/16/25 13:00 Hgb 14.90 g/dL (11.27-16.99) 01/16/25 13:00 Hct 43.5 % (37-53) 01/16/25 13:00 MCV 92.8 fl (82-101) 01/16/25 13:00 MCH 31.8 pg (27-33) 01/16/25 13:00 MCHC 34.3 g/dL (30-55) 01/16/25 13:00 RDW 12.4 % (12.1-15.1) 01/16/25 13:00 Plt Count 159 10^3/cmm (157-399) 01/16/25 13:00 MPV 10.4 fL (7.4-10.4) 01/16/25 13:00 Neut % (Auto) 73.0 % 01/16/25 13:00 Lymph % (Auto) 18.0 % 01/16/25 13:00 Crockett % (Auto) 7.9 % 01/16/25 13:00 Eos % (Auto) 0.4 % 01/16/25 13:00 Baso % (Auto) 0.4 % 01/16/25 13:00 Neut # (Auto) 5.38 10^3/uL (1.8-7.7) 01/16/25 13:00 Lymph # (Auto) 1.3 10^3/uL (0.8-4.8) 01/16/25 13:00 Crockett # (Auto) 0.6 10^3/uL (0.2-0.9) 01/16/25 13:00 Eos # (Auto) 0.0 10^3/uL (0.0-0.8) 01/16/25 13:00 Baso # (Auto) 0.0 10^3/uL (0.0-0.1) 01/16/25 13:00 Nucleated RBC % (auto) 0 % 01/16/25 13:00 Nucleated RBCs # 0.0 /100WBC 01/16/25 13:00 Sodium 143 mmol/L (136-145) 01/16/25 13:00 Potassium 4.3 mmol/L (3.5-5.1) 01/16/25 13:00 Chloride 103 mmol/L (98-107) 01/16/25 13:00 Carbon Dioxide 27 mmol/L (22-29) 01/16/25 13:00 Anion Gap 17.3 (5-19) 01/16/25 13:00 BUN 18 mg/dL (6-20) 01/16/25 13:00 Creatinine 1.1 mg/dL (0.7-1.2) 01/16/25 13:00 GFR Calculation 99.5 mL/min (90-130) 01/16/25 13:00 Glucose 96 mg/dL (65-115) 01/16/25 13:00 Calculated Osmolality 298 mOsm/kg (285-295) H 01/16/25 13:00 Calcium 9.7 mg/dL (8.5-10.5) 01/16/25 13:00 Total Bilirubin 0.9 mg/dL (0.15-1.2) 01/16/25 13:00 AST 144 U/L (0-40) H 01/16/25 13:00 ALT 35 U/L (0-41) 01/16/25 13:00 Alkaline Phosphatase 68 U/L (40-130) 01/16/25 13:00 Total Protein 7.4 g/dL (6.6-8.7) 01/16/25 13:00 Albumin 4.8 g/dL (3.5-5.2) 01/16/25 13:00 Globulin 2.6 g/dL (1.3-4.6) 01/16/25 13:00 Salicylates < 0.3 mg/dL (3-10) L 01/16/25 13:00 Urine Opiates Screen Negative ng/mL (Negative) 01/16/25 13:01 Acetaminophen < 5.0 ug/mL (10-30) L 01/16/25 13:00 Ur Barbiturates Screen Negative ng/mL (Negative) 01/16/25 13:01 Ur Phencyclidine Scrn Negative ng/mL (Negative) 01/16/25 13:01 Ur Amphetamines Screen Negative ng/mL (Negative) 01/16/25 13:01 U Benzodiazepines Scrn Negative ng/mL (Negative) 01/16/25 13:01 Urine Cocaine Screen Negative ng/mL (Negative) 01/16/25 13:01 U Marijuana (THC) Screen Positive ng/mL (Negative) H 01/16/25 13:01 No radiology studies performed this visit Discharge Plan Discharge Patient Disposition: Admitted As Inpatient Clinical Impression: Suicidal ideation, Depression Condition: Stable Coding Level of Care Code ED Chief Of Field Operations for Patricio Dukes
[2025-01-16 13:13] LABS: Hematocrit 43.5 % (37-53); Hemoglobin 14.90 g/dL (11.27-16.99); Mean Corpuscular HGB Conc 34.3 g/dL (30-55); Mean Corpuscular Hemoglobin 31.8 pg (27-33); Mean Corpuscular Volume 92.8 fl (82-101); Nucleated Red Blood Cells % 0 %; Platelet Count 159 10^3/cmm (157-399); Red Blood Count 4.69 10^6/uL (3.85-5.65); White Blood Count 7.37 10^3/uL (3.29-11.43)
[2025-01-16 13:18] LABS: PCP Screen Urine Negative (Negative)
[2025-01-16 13:34] LABS: Alanine Aminotransferase 35 U/L (0-41); Albumin Level 4.8 g/dL (3.5-5.2); Alkaline Phosphatase 68 U/L (40-130); Anion Gap 17.3 (5-19); Aspartate Amino Transferase 144 U/L (0-40); Blood Urea Nitrogen 18 mg/dL (6-20); Calcium 9.7 mg/dL (8.5-10.5); Carbon Dioxide 27 mmol/L (22-29); Chloride 103 mmol/L (98-107); Creatinine Clr Calc Pharmacy 106.5653; Globulin 2.6 g/dL (1.3-4.6); Glucose 96 mg/dL (65-115); Osmolality Calculated 298 mOsm/kg (285-295); Potassium 4.3 mmol/L (3.5-5.1); Sodium 143 mmol/L (136-145); Total Protein 7.4 g/dL (6.6-8.7)
[2025-01-16 13:35] LABS: Acetaminophen < 5.0 ug/mL (10-30); Salicylate < 0.3 mg/dL (3-10)
--- NOTE | 2025-01-16 13:42 | PC.NURSE ---
96 hr rights reviewed with pt @[id number] with assistance of [facility] telecommunications officer Shashi Gamboa. All education reviewed with pt at this time. Pt verbalized understanding to hold parameters. Pt copy was left with pt. [place] and soda provided to pt. No further needs.
--- NOTE | 2025-01-16 16:23 | PC.PHAR ---
Patient states he is not taking medication . He just smokes [place] and cigarettes.
[2025-01-16 17:01] VITALS: PULSE 72; O2SAT 99
[2025-01-16 17:09] VITALS: BP 138/94; PULSE 70; RESP 16; TEMP 36.8; O2SAT 100
[2025-01-16 19:25] VITALS: BP 137/81; PULSE 82; RESP 18; TEMP 36.7; O2SAT 95
[2025-01-17 06:00] VITALS: BP 119/72; PULSE 75; RESP 16; O2SAT 100
--- OUTSIDE RECORDS SUMMARY | 2025-01-17 08:06 | XMS_ITS | Clinical Summary ---
Author Organization [facility] Address [address] [place] [address] Phone Care Team Providers Care Pathology Technologist Name Role Phone Tate Pavon, LUCILLE, Cody [...] ID:Not on file Type:Medicaid Managed Care Address: [address] GENERIC MEDICAID MANAGED CARE Care Teams Pathology Technologist Relationship Specialty Start Date End Date Tate Pavon, LUCILLE Wallace [address] [place] [address] PCP - General NURSE PRACTITIONER 11/09/16
--- OUTSIDE RECORDS SUMMARY | 2025-01-17 08:06 | XMS_ITS | Clinical Summary ---
Author Organization [facility] Address [address] 

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
[2025-01-17 14:00] VITALS: BP 127/76; PULSE 66; RESP 16; TEMP 37.2; O2SAT 99
[2025-01-17] MEDS: blistex lip oint 7 gm Tube 1 APPLIC TOPICAL (19:29)
[2025-01-17 19:51] VITALS: BP 126/89; PULSE 87; RESP 18; TEMP 37; O2SAT 98
[2025-01-18 06:00] VITALS: BP 123/81; PULSE 66; RESP 16; O2SAT 100
[2025-01-18 14:00] VITALS: BP 168/106; PULSE 84; RESP 16; TEMP 36.9; O2SAT 98
--- NOTE | 2025-01-18 15:12 | PC.NURSE ---
Pt is very agitated and has been prompt by this nurse to please take a medication to help calm his nerves. Pt has refused twice. Pt is pacing up and down the john with raised voice, pt is talking about being wronged by his family and that they are liars. This nurse informed pt that he will receive medication if he can not calm down on his own.
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
[2025-01-18 20:19] VITALS: RESP 16
--- NOTE | 2025-01-18 20:19 | PC.NURSE ---
pt refused vitals resp at 16
[2025-01-19 06:00] VITALS: RESP 16
--- NOTE | 2025-01-19 06:15 | PC.NURSE ---
pt was up most of night vitals were not untained per nurse. resp at 16
[2025-01-19] MEDS: neomycin-poly-bacitracin oint 28 gm 1 APPLIC TOPICAL (10:09)
[2025-01-19 14:00] VITALS: BP 125/81; PULSE 85; RESP 16; TEMP 36.7; O2SAT 99
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
[2025-01-19 20:27] VITALS: BP 132/85; PULSE 75; RESP 16; TEMP 37; O2SAT 100
[2025-01-20 06:00] VITALS: BP 128/72; PULSE 66; RESP 16; TEMP 36.5; O2SAT 100
[2025-01-20 14:00] VITALS: BP 143/84; PULSE 96; RESP 16; TEMP 37; O2SAT 99
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
[2025-01-20 20:40] VITALS: BP 121/67; PULSE 78; RESP 18; TEMP 36.9; O2SAT 97
[2025-01-21 06:00] VITALS: BP 126/70; PULSE 73; RESP 18; TEMP 36.5; O2SAT 99
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
[2025-01-21 14:00] VITALS: BP 105/68; PULSE 78; RESP 16; TEMP 37.2; O2SAT 98
[2025-01-21 20:43] VITALS: BP 121/78; PULSE 75; RESP 18; TEMP 36.6; O2SAT 98
[2025-01-22 06:00] VITALS: BP 121/65; PULSE 64; RESP 18; TEMP 36.4; O2SAT 98
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
[2025-01-22 13:46] VITALS: BP 135/80; PULSE 78; RESP 16; TEMP 36.3; O2SAT 97
[2025-01-22 19:12] VITALS: BP 123/81; PULSE 78; RESP 16; TEMP 36.8; O2SAT 99
[2025-01-23 06:00] VITALS: BP 121/68; PULSE 74; RESP 16; TEMP 36.6; O2SAT 99
[2025-01-23 14:00] VITALS: BP 133/78; PULSE 97; RESP 16; TEMP 37.2; O2SAT 98
--- NOTE | 2025-01-23 15:37 | PC.NURSE ---
PT off unit for court
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
[2025-01-23 20:29] VITALS: BP 138/83; PULSE 84; RESP 18; TEMP 37.1; O2SAT 97
[2025-01-24 06:00] VITALS: RESP 16
[2025-01-24 14:00] VITALS: BP 104/57; PULSE 74; RESP 16; TEMP 36.6; O2SAT 98
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
[2025-01-24 19:57] VITALS: BP 120/79; PULSE 101; RESP 16; O2SAT 98
[2025-01-25 06:00] VITALS: RESP 16
[2025-01-25 14:00] VITALS: BP 134/69; PULSE 95; RESP 15; TEMP 37.3; O2SAT 98
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
[2025-01-25 19:55] VITALS: BP 118/73; PULSE 83; RESP 18; TEMP 36.4; O2SAT 97
[2025-01-26 06:00] VITALS: BP 124/85; PULSE 78; RESP 18; O2SAT 99
[2025-01-26 14:00] VITALS: BP 117/67; PULSE 75; RESP 16; TEMP 37.1; O2SAT 99
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
[2025-01-26 22:00] VITALS: BP 116/63; PULSE 81; RESP 17; TEMP 36.8; O2SAT 96
--- NOTE | 2025-01-27 06:23 | PC.NURSE ---
pt refused vs, nurse notified, resp 18
[2025-01-27 14:00] VITALS: BP 147/88; PULSE 96; RESP 16; TEMP 36.8; O2SAT 100
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
[2025-01-27 20:17] VITALS: BP 139/87; PULSE 94; RESP 16; TEMP 36.6; O2SAT 97
[2025-01-28 06:00] VITALS: BP 114/71; PULSE 98; RESP 18; TEMP 36.6; O2SAT 96
[2025-01-28 14:00] VITALS: BP 126/84; PULSE 101; RESP 18; TEMP 36.6; O2SAT 97
[2025-01-28 20:19] VITALS: BP 117/80; PULSE 89; RESP 18; TEMP 36.6; O2SAT 98
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
[2025-01-29 06:00] VITALS: BP 108/70; PULSE 86; RESP 18; TEMP 36.6; O2SAT 97; BMI 21.7
[2025-01-29 14:00] VITALS: BP 123/79; PULSE 105; RESP 18; TEMP 37.2; O2SAT 99
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
[2025-01-29 21:25] VITALS: BP 131/94; PULSE 93; RESP 16; TEMP 36.8; O2SAT 98
[2025-01-30 06:00] VITALS: BP 119/77; PULSE 86; RESP 18; TEMP 36.5; O2SAT 99
[2025-01-30] MEDS: ARIPIPRAZOLE 960 EACH IM (13:32)
[2025-01-30 14:00] VITALS: BP 126/76; PULSE 108; RESP 18; TEMP 36.8; O2SAT 97
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
[2025-01-30 20:27] VITALS: BP 124/78; PULSE 85; RESP 18; TEMP 36.9; O2SAT 99
[2025-01-31 06:00] VITALS: BP 120/86; PULSE 95; RESP 18; TEMP 36.7; O2SAT 98
[2025-01-31 14:00] VITALS: BP 134/55; PULSE 85; RESP 18; TEMP 37.2; O2SAT 98
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
[2025-01-31 22:00] VITALS: BP 143/78; PULSE 107; RESP 18; TEMP 37; O2SAT 98
[2025-02-01 06:00] VITALS: BP 151/83; PULSE 100; RESP 20; TEMP 36.8; O2SAT 99
--- NOTE | 2025-02-01 06:17 | PC.NURSE ---
pt phone call pt attempted to reach friend at this time. given cell phone to retrieve number and cell phone immediately returned to safe.
[2025-02-01 14:00] VITALS: BP 126/77; PULSE 94; RESP 16; TEMP 36.9; O2SAT 98
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
[2025-02-01 22:00] VITALS: BP 142/84; PULSE 105; RESP 18; TEMP 37.1; O2SAT 98
[2025-02-02 06:00] VITALS: BP 133/88; PULSE 98; RESP 18; TEMP 36.7; O2SAT 98
--- NOTE | 2025-02-02 10:12 | P.NPUDS_ITS ---
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 Room Air 02/02/25 06:00 Discharge Plan Discharge Patient Disposition: Home Condition: Stable Prescriptions: New aripiprazole 10 mg Tablet 10 mg PO BEDTIME 15 Days Qty: 15 0RF Abilify Asimtufii 960 mg/3.2 mL suspension,extended rel syring 960 mg IM ONCE 56 Days Qty: 179.2 1RF Rx Instructions: Next IM shot due 03/27/2025 Discharge Order = DC NOW: Discharge Order (Routine); Ordered 02/02/25 Ordered By: Francisco Boyer Referrals: [facility] [Outside, Behavioral Health] - 02/06/25 1:00 pm Referral Note: One time hospital safety plan apt with Mihir Chamorro. Edilia Fine, PMHNP [Staff Physician, Psychiatry] - 02/17/25 9:45 am Referral Note: Follow up. Raghu Ruiz FNP [Primary Care Provider, Family Practice] Discharge Diet: Usual diet Discharge Activity: Resume usual activity Patient Instructions: Help Prevent Suicide (DC), Psychotic Disorder (DC), Opioid Safety, Patient Portal & Sathya Instructions Discharge Attestations NPU Time Spent in Discharge Care*: less than 30 min Specific Discharge Activities: Specific discharge activities: educating patient, discussing with family service caseworker/social workers/dc planners and documenting/other paperwork Coding Level of Care Code Acute Code for [facility] Fwd Diagnoses Suicidal ideation R45.851 Acute psychosis F23 Depression F32.A Anxiety F41.9 Cannabis use disorder F12.90
[2025-02-02 10:18] VITALS: BP 133/88; PULSE 98; RESP 18; TEMP 36.6; O2SAT 98
[2025-02-02 13:02] VITALS: BP 125/71; PULSE 110; RESP 16; TEMP 37; O2SAT 99
== END 2025-02-02 13:43 | disposition home or self-care (01) | DRG 885 ==
LOC: ER 13:44 → NP 20:41 → ER IP 01-17 07:58
PROVIDERS: Admitting Provider Psychiatry & Neurology Psychiatry; Emergency Provider Family Medicine; PCP Registered Nurse; Visit Provider Psychiatry & Neurology Psychiatry
DX: F23 Brief psychotic disorder (principal); R45.851 Suicidal ideations; F33.9 Major depressive disorder, recurrent, unspecified; R63.6 Underweight; Z68.21 Body mass index [BMI] 21.0-21.9, adult; Z91.51 Personal history of suicidal behavior; F12.90 Cannabis use, unspecified, uncomplicated; F41.1 Generalized anxiety disorder; Z81.8 Family history of other mental and behavioral disorders
CPT/HCPCS: 36415; 80053; 80306; 80307; 85025; 96372; 97150; 97165; 99285; J9999